=== PATIENT | female | born 1995 | race Caucasian/White ===

== ENCOUNTER 2017-02-07 09:44 | Emergency (ER) | payer OTHER ==
[~2017-02-07] VITALS: Ht 157.5 cm; Wt 69.5 kg
[2017-02-07 09:45] VITALS: BP 128/69
[2017-02-07] MEDS ORDERED: PRENTAB55 PO (10:07)
[2017-02-07] MEDS ORDERED: NS 1,000 ML IV ONE (10:30)
[2017-02-07] MEDS ORDERED: cefTRIAXone SOD 1 GM in D5W MINI-BAG PLUS 50 ML IV ONE (10:30)
[2017-02-07 10:38] LABS: MEAN CORPUSCULAR HEMOGLOBIN 32.5 pg (27.0-33.0); MEAN CORPUSCULAR HGB CONC 35.8 g/dl (32.0-36.5); MEAN CORPUSCULAR VOLUME 90.8 fl (80.0-96.0); WHITE BLOOD COUNT 16.5 K/mm3 (4.0-10.0)
[2017-02-07 10:39] LABS: BASO % 0.1 % (0.0-1.0); EOS % 0.2 % (0.0-3.0); LARGE UNSTAINED CELL # 0.1 K/mm3 (0.0-0.4); LARGE UNSTAINED CELL % 0.9 % (0.0-4.0); LYMPH % 5.5 % (24.0-44.0); MONO # 1.1 K/mm3 (0.0-0.8); MONO % 6.4 % (0.0-5.0); NEUTROPHILS # 14.4 K/mm3 (1.8-7.7); PLATELET COUNT, AUTOMATED 194 k/mm3 (150-450)
[2017-02-07 10:57] LABS: ANION GAP 12 MEQ/L (8-16); BLOOD UREA NITROGEN 6 MG/DL (7-18); CARBON DIOXIDE LEVEL 24 MEQ/L (21-32); CHLORIDE LEVEL 98 MEQ/L (98-107); CREATININE FOR GFR 0.65 MG/DL (0.55-1.02); GLUCOSE, FASTING 86 MG/DL (70-105); POTASSIUM SERUM 3.4 MEQ/L (3.5-5.1); SODIUM LEVEL 134 MEQ/L (136-145)
--- NOTE | 2017-02-07 11:36 | REP ---
RENAL ULTRASOUND: HISTORY: Left flank pain. The kidneys are normal in echogenicity. The right kidney measures 6.4 cm in transverse by 4.7 cm in AP by 13.1 cm in cephalocaudal dimensions. The left kidney measures 6.7 cm in transverse by 5.5 cm in AP by 12.4 cm in cephalocaudal dimensions. There is mild right hydronephrosis and proximal right hydroureter. There is no left hydronephrosis or hydroureter. There is no mass. There are no filling defects in the urinary bladder. An intrauterine is present in breech presentation. IMPRESSION: Mild right hydronephrosis and mild proximal hydroureter. Signed by Jhony Morales MD 02/07/2017 11:39 A
[2017-02-07] MEDS ORDERED: AUGM875T28 PO (13:26)
== END 2017-02-07 13:42 | disposition home or self-care (01) ==
LOC: M ED 09:44
DX: O23.42 Unspecified infection of urinary tract in pregnancy, second trimester (principal); O23.02 Infections of kidney in pregnancy, second trimester; Z3A.16 16 weeks gestation of pregnancy; Z79.899 Other long term (current) drug therapy; Z88.8 Allergy status to other drugs, medicaments and biological substances
CPT/HCPCS: 76775; 80048; 81001; 85025; 87088; 87186; 96365; 96366; 99283; J0696

== ENCOUNTER 2017-07-05 13:04 | Outpatient (CLI) | payer OTHER | END 2017-07-05 15:00 | disposition home or self-care (01) | LOC: M LDO 13:04 | DX: O36.8130 Decreased fetal movements, third trimester, not applicable or unspecified (principal); Z3A.37 37 weeks gestation of pregnancy; Z79.899 Other long term (current) drug therapy; Z88.8 Allergy status to other drugs, medicaments and biological substances | CPT/HCPCS: 59025 ==

== ENCOUNTER 2017-07-19 09:55 | Outpatient (CLI) | payer OTHER ==
[2017-07-19 10:44] LABS: HEMATOCRIT 35.3 % (36.0-47.0); HEMOGLOBIN 12.1 g/dl (12.0-16.0); MEAN CORPUSCULAR HEMOGLOBIN 30.6 pg (27.0-33.0); MEAN CORPUSCULAR HGB CONC 34.3 g/dl (32.0-36.5); MEAN CORPUSCULAR VOLUME 89.4 fl (80.0-96.0); PLATELET COUNT, AUTOMATED 170 10^3/uL (150-450); RED BLOOD COUNT 3.95 10^6/uL (4.00-5.40); RED CELL DISTRIBUTION WIDTH 12.4 % (11.5-14.5); WHITE BLOOD COUNT 13.1 10^3/uL (4.0-10.0)
[2017-07-19 10:52] LABS: TOTAL PROTEIN,RANDOM URINE 25.7 MG/DL (0.0-12.0)
[2017-07-19 11:05] LABS: ALT/SGPT 17 U/L (12-78); LDH LACTATE DEHYDROGENASE 198 U/L (84-246); URIC ACID 3.9 MG/DL (2.6-6.0)
[2017-07-19 11:05] LABS: AST/SGOT 19 U/L (7-37)
== END 2017-07-19 12:05 | disposition home or self-care (01) ==
LOC: M LDO 09:55
DX: O26.893 Other specified pregnancy related conditions, third trimester (principal); Z3A.39 39 weeks gestation of pregnancy; R03.0 Elevated blood-pressure reading, without diagnosis of hypertension; Z88.8 Allergy status to other drugs, medicaments and biological substances
CPT/HCPCS: 59025

== ENCOUNTER → 2017-07-20 | Outpatient (REF) | payer OTHER ==
[2017-07-20 15:31] LABS: TOTAL VOLUME, URINE 1725 ML
[2017-07-20 15:37] LABS: TOTAL PROTEIN 24 HOUR URINE 220.8 MG/24HR (50-150); URINE TOTAL PROTEIN 12.8 MG/DL (0-12)
== END ==
LOC: M LAB REF 15:15
DX: O26.893 Other specified pregnancy related conditions, third trimester (principal); R03.0 Elevated blood-pressure reading, without diagnosis of hypertension; Z3A.39 39 weeks gestation of pregnancy
CPT/HCPCS: 81050

== ENCOUNTER 2017-07-26 14:09 | Outpatient (CLI) | payer OTHER | END 2017-07-26 16:00 | disposition home or self-care (01) | LOC: M LDO 14:09 | DX: O47.1 False labor at or after 37 completed weeks of gestation (principal); Z3A.40 40 weeks gestation of pregnancy; Z88.8 Allergy status to other drugs, medicaments and biological substances | CPT/HCPCS: 76815 ==

== ENCOUNTER 2017-07-30 01:01 | Outpatient (CLI) | payer OTHER | END 2017-07-30 02:26 | disposition home or self-care (01) | LOC: M LDO 01:01 | DX: O47.1 False labor at or after 37 completed weeks of gestation (principal); Z3A.41 41 weeks gestation of pregnancy ==

== ENCOUNTER 2017-07-30 19:28 | Inpatient (IN) | payer OTHER ==
[2017-07-30] MEDS: LR 1,000 ML IV (21:52)
[2017-07-30] MEDS: LACTATED RINGER'S 1000 ML IV (21:52)
[2017-07-30] MEDS ORDERED: LR 1,000 ML IV (21:52)
[2017-07-30 22:22] LABS: HEMOGLOBIN 11.8 g/dl (12.0-16.0); MEAN CORPUSCULAR HEMOGLOBIN 30.3 pg (27.0-33.0); MEAN CORPUSCULAR HGB CONC 33.7 g/dl (32.0-36.5); PLATELET COUNT, AUTOMATED 171 10^3/uL (150-450); RED BLOOD COUNT 3.89 10^6/uL (4.00-5.40); RED CELL DISTRIBUTION WIDTH 12.9 % (11.5-14.5); WHITE BLOOD COUNT 19.7 10^3/uL (4.0-10.0)
[2017-07-30] MEDS ORDERED: FENTANYL 2MCG/ML ROPIVACAINE 0.2% IN 0.9% NACL 200ML IVBAG As Ordered (22:58)
[2017-07-30 23:04] LABS: AMPHETAMINES URINE REFLEX NEGATIVE (NEGATIVE); BARBITURATES URINE REFLEX NEGATIVE (NEGATIVE); BENZODIAZEPINES URINE REFLEX NEGATIVE (NEGATIVE); CANNABINOIDS URINE REFLEX NEGATIVE (NEGATIVE); COCAINE METABOLITE URINE REFLE NEGATIVE (NEGATIVE); METHADONE URINE REFLEX NEGATIVE (NEGATIVE); OPIATES URINE REFLEX NEGATIVE (NEGATIVE); PHENCYCLIDINE URINE REFLEX NEGATIVE (NEGATIVE)
[2017-07-31] MEDS ORDERED: ePHEDrine INJ 50 MG/ML VIAL IV (00:15)
[2017-07-31] MEDS ORDERED: LACTATED RINGER'S 1000 ML IV (00:15)
[2017-07-31] MEDS ORDERED: REFRIGERATOR IV KEYS XX (00:15)
[2017-07-31] MEDS ORDERED: EPIDURAL/PCA KEYS XX (00:15)
[2017-07-31] MEDS ORDERED: NALOXONE INJ 0.4 MG/1 ML VIAL (J2310) IV ×3 (00:15→14:25)
[2017-07-31] MEDS ORDERED: diphenhydrAMINE INJ 50MG/ML VIAL (J1200) IV (00:15)
[2017-07-31] MEDS: FENTANYL/ROPIVACAINE/NACL BAG 200 ML EPIDURAL (00:15)
[2017-07-31] MEDS ORDERED: ONDANSETRON 4MG/2ML VIAL (J2405) IV ×4 (00:15→15:30)
[2017-07-31] MEDS ORDERED: EPIDURAL COMMENT XX (00:15)
[2017-07-31] MEDS: OXYTOCIN DRIP 30 UNITS in APPROPRIATE DILUENT 1 EA IV (01:20)
[2017-07-31] MEDS ORDERED: TERBUTALINE SULFATE 1 MG/ML VIAL (J3105) As Ordered (13:52)
[2017-07-31] MEDS ORDERED: ceFAZolin 2 GM/D5W 50 ML IV BAG (J0690 PER 500MG) As Ordered (13:53)
[2017-07-31] MEDS ORDERED: AZITHROMYCIN INJ 500MG VIAL (J0456) As Ordered (13:53)
[2017-07-31] MEDS ORDERED: BICITRA 30ML SOLN UDC As Ordered (13:57)
[2017-07-31] MEDS: BICITRA 30ML SOLN UDC PO (14:00)
[2017-07-31] MEDS ORDERED: MORPHINE PRES-FREE INJ 10 MG/10 ML VIAL (J2274) As Ordered (14:18)
[2017-07-31] MEDS ORDERED: KETOROLAC 60 MG/2 ML VIAL (J1885) As Ordered (14:18)
[2017-07-31] MEDS ORDERED: OXYTOCIN INJ 10 UNITS/ML VIAL (J2590) As Ordered ×3 (14:18→14:28)
[2017-07-31] MEDS ORDERED: ONDANSETRON 4MG/2ML VIAL (J2405) As Ordered ×2 (14:18→14:40)
[2017-07-31] MEDS ORDERED: NALBUPHINE HCL 10 MG/ML AMP (J2300) IV ×2 (14:25→15:30)
[2017-07-31] MEDS ORDERED: METOCLOPRAMIDE INJ 10MG/2ML VIAL (J2765) IV (14:25)
[2017-07-31] MEDS ORDERED: LIDOCAINE 2% W/EPIN INJ 20ML **PRES FREE As Ordered (14:28)
[2017-07-31] MEDS ORDERED: SODIUM BICARBONATE 8.4% INJ 50MEQ 50 ML VIAL As Ordered (14:28)
[2017-07-31 14:42] LABS: CORD GAS ABE V -2.2; CORD GAS HCO3 V 22.7 MEQ/L; CORD GAS O2 SAT V 73.4 %; CORD GAS PCO2 V 39.7 mmHg; CORD GAS PH V 7.375 UNITS; CORD GAS TCO2 V 23.9 MEQ/L
[2017-07-31] MEDS ORDERED: RHOGAM 300 MCG (1500 IU) INJ (J2790) IM (15:30)
[2017-07-31] MEDS ORDERED: MEASLES,MUMPS,RUBELLA VACCINE INJ (MMR-II) (90707) SC (15:30)
[2017-07-31] MEDS ORDERED: PROMETHAZINE 25 MG TAB PO (15:30)
[2017-07-31] MEDS ORDERED: DOCUSATE SODIUM 100 MG CAP PO (15:30)
[2017-07-31] MEDS ORDERED: PERCOCET 5MG/325MG TAB PO (15:30)
[2017-07-31] MEDS ORDERED: MOM 30ML SUSPENSION UDC PO (15:30)
[2017-07-31] MEDS ORDERED: fentaNYL 100 MCG/2 ML INJECTION (J3010) IV (15:30)
[2017-07-31] MEDS: AZITHROMYCIN INJ 500 MG, VIAL MATE ADAPTER 1 EACH in D5W 250 ML IV (16:40)
[2017-07-31] MEDS: TERBUTALINE SULFATE 1 MG/ML VIAL (J3105) SC (16:40)
[2017-07-31] MEDS: LR 1,000 ML IV (16:44)
[2017-08-01] MEDS: METHYLERGONOVINE MALEATE 0.2 MG TAB PO (00:25)
[2017-08-01] MEDS: LR 1,000 ML IV (00:38)
[2017-08-01] MEDS: PERCOCET 5MG/325MG TAB PO ×4 (06:15→19:31)
[2017-08-01 07:46] LABS: HEMATOCRIT 26.1 % (36.0-47.0); MEAN CORPUSCULAR HEMOGLOBIN 30.5 pg (27.0-33.0); MEAN CORPUSCULAR HGB CONC 33.3 g/dl (32.0-36.5); MEAN CORPUSCULAR VOLUME 91.6 fl (80.0-96.0); PLATELET COUNT, AUTOMATED 138 10^3/uL (150-450); RED BLOOD COUNT 2.85 10^6/uL (4.00-5.40); RED CELL DISTRIBUTION WIDTH 13.3 % (11.5-14.5); WHITE BLOOD COUNT 22.5 10^3/uL (4.0-10.0)
[2017-08-01 08:02] LABS: HEMOGLOBIN 8.7 g/dl (12.0-16.0)
[2017-08-01] MEDS: PRENATAL VITAMINS CHEWABLE TABLET PO (10:05)
[2017-08-02] MEDS: PERCOCET 5MG/325MG TAB PO ×2 (05:20→10:05)
[2017-08-02] MEDS: PRENATAL VITAMINS CHEWABLE TABLET PO (10:05)
== END 2017-08-02 11:40 | disposition home or self-care (01) | DRG 766 ==
LOC: M LDO 19:28 → M LDI 21:39 → M OBS 07-31 16:20
PROC: 10D00Z1 Extraction of Products of Conception, Low, Open Approach (ICD-10-PCS; principal; 2017-07-31 14:08)
DX: O48.0 Post-term pregnancy (principal); Z37.0 Single live birth; Z3A.41 41 weeks gestation of pregnancy; O76 Abnormality in fetal heart rate and rhythm complicating labor and delivery

== ENCOUNTER → 2018-08-01 | Outpatient (REF) | payer OTHER ==
[~2018-08-01] MED LIST: AUGM875T28 PO; COLA100C5 PO; MOM30SS PO; OXYC1TAB23 PO; PRENTAB55 PO; ZOLO25TA PO
[2018-08-01 13:33] LABS: BASO # 0.1 10^3/uL (0.0-0.2); BASO % 0.4 % (0.0-1.0); EOS # 0.1 10^3/uL (0.0-0.50); HEMATOCRIT 43.5 % (36.0-47.0); HEMOGLOBIN 14.4 g/dl (12.0-15.5); LYMPH # 2.9 10^3/uL (1.5-6.5); LYMPH % 25.1 % (24.0-44.0); MEAN CORPUSCULAR HEMOGLOBIN 30.1 pg (27.0-33.0); MEAN CORPUSCULAR HGB CONC 33.1 g/dl (32.0-36.5); MONO # 0.9 10^3/uL (0.0-0.8); MONO % 7.8 % (0.0-5.0); NEUTROPHILS # 7.7 10^3/uL (1.8-7.7); NEUTROPHILS % 65.3 % (36.0-66.0); PLATELET COUNT, AUTOMATED 281 10^3/uL (150-450); RED BLOOD COUNT 4.78 10^6/uL (4.00-5.40); WHITE BLOOD COUNT 11.7 10^3/uL (4.0-10.0)
[2018-08-01 14:29] LABS: ERYTHROCYTE SEDIMENTATION RATE 7 mm/hr (0-20)
[2018-08-04 00:07] LABS: ANA (HEP2) Negative (.); CYCLIC CITRULLINATED PEPTIDE 1 units (0-19); SSA SJOGRENS A <0.2 AI (0.0-0.9); SSB SJOGRENS B <0.2 AI (0.0-0.9)
== END ==
LOC: M SFHCPLAZ 11:49
PROVIDERS: ATTEND Internal Medicine Infectious Disease
DX: L40.9 Psoriasis, unspecified (principal)

== ENCOUNTER → 2018-11-21 | Outpatient (CLI) | payer OTHER ==
--- NOTE | 2018-11-21 18:01 | REP ---
LUMBAR SPINE, FIVE VIEWS: HISTORY: Back pain. There is no acute fracture of subluxation. The intervertebral discs are normal in height. The facet joints are normal in appearance. IMPRESSION:There is no acute fracture or subluxation. Electronically Signed by Jhony Morales MD 11/21/2018 06:27 P
[2018-11-21 19:29] LABS: ALBUMIN 4.6 GM/DL (3.2-5.2); ALT/SGPT 30 U/L (12-78); BILIRUBIN,TOTAL 0.3 MG/DL (0.2-1.0); BLOOD UREA NITROGEN 11 MG/DL (7-18); C REACTIVE PROTEIN QUANTITATIV 0.34 MG/DL (0.00-0.30); CALCIUM LEVEL 9.9 MG/DL (8.5-10.1); CARBON DIOXIDE LEVEL 27 MEQ/L (21-32); CHLORIDE LEVEL 104 MEQ/L (98-107); COMPLEMENT C3 148 MG/DL (90-180); COMPLEMENT C4 32 MG/DL (10-40); CREATININE FOR GFR 0.77 MG/DL (0.55-1.30); GLOMERULAR FILTRATION RATE > 60.0 (>60); GLUCOSE, FASTING 99 MG/DL (70-100); POTASSIUM SERUM 4.1 MEQ/L (3.5-5.1); RHEUMATOID FACTOR QUANT < 10.0 IU/ML (<15.0); SODIUM LEVEL 139 MEQ/L (136-145); TOTAL PROTEIN 8.4 GM/DL (6.4-8.2)
[2018-11-21 20:03] LABS: CREATININE,RANDOM URINE 55.1 MG/DL; TOTAL PROTEIN,RANDOM URINE 6.6 MG/DL (0.0-12.0)
[2018-11-21 20:11] LABS: APPEARANCE, URINE CLEAR (CLEAR); BACTERIA, URINE AUTO NEGATIVE (NEGATIVE); BILIRUBIN, URINE AUTO NEGATIVE (NEGATIVE); BLOOD, URINE BLOOD NEGATIVE (NEGATIVE); COLOR, URINE YELLOW (YELLOW); GLUCOSE, URINE (UA) AUTO NEGATIVE (NEGATIVE); KETONE, URINE AUTO NEGATIVE (NEGATIVE); LEUKOCYTE ESTERASE, URINE AUTO 2+ (NEGATIVE); NITRITE, URINE AUTO NEGATIVE (NEGATIVE); PROTEIN, URINE AUTO NEGATIVE (NEGATIVE); RBC, URINE AUTO 1 /HPF (0-3); SPECIFIC GRAVITY URINE AUTO 1.011 (1.002-1.035); SQUAMOUS EPITHELIAL CELL UR AU 3 /HPF (0-6); TRANSITIONAL EPITHELIAL AUTO <1 /HPF; UROBILINOGEN, URINE AUTO 0.2 mg/dL (0.0-2.0); WBC, URINE AUTO 4 /HPF (0-3)
--- NOTE | 2018-11-22 11:49 | REP ---
Clinical: Lower back pain. Technique: Single AP view of the pelvis. Findings: Osseous structures, joint spaces, and surrounding soft tissues are normal. IUD identified in central seemingly satisfactory position. Impression: Normal pelvic radiograph. Electronically Signed by Juliano Turcios MD 11/22/2018 11:24 A
--- NOTE | 2018-11-22 11:50 | REP ---
Clinical: Lower back pain. Technique: Four views of the bilateral sacroiliac joints. Findings: Sacroiliac joints are symmetric and normal in appearance. No associated degenerative changes or periarticular sclerosis. Impression: Normal symmetric bilateral sacroiliac joints. Electronically Signed by Juliano Turcios MD 11/22/2018 11:25 A
[2018-11-28 14:13] LABS: ANA (HEP2) Negative (.); ANTI DS-DNA AB <1:10 titer (.); RNP ANTIBODY 0.5 AI (0.0-0.9); SMITHS ANTIBODY < 0.2 AI (0.0-0.9)
== END ==
LOC: M RAD 15:43
PROVIDERS: ATTEND Internal Medicine Rheumatology
DX: M54.9 Dorsalgia, unspecified (principal); R21 Rash and other nonspecific skin eruption; R03.0 Elevated blood-pressure reading, without diagnosis of hypertension

== ENCOUNTER → 2018-11-23 | Outpatient (REF) | payer OTHER ==
[2018-11-23 18:09] LABS: BASO # 0.1 10^3/uL (0.0-0.2); BASO % 0.5 % (0.0-1.0); EOS # 0.2 10^3/uL (0.0-0.50); EOS % 1.8 % (0.0-3.0); HEMOGLOBIN 14.3 g/dl (12.0-15.5); LYMPH % 31.8 % (24.0-44.0); MEAN CORPUSCULAR HEMOGLOBIN 30.7 pg (27.0-33.0); MEAN CORPUSCULAR HGB CONC 33.3 g/dl (32.0-36.5); MEAN CORPUSCULAR VOLUME 92.3 fl (80.0-96.0); MONO # 0.9 10^3/uL (0.0-0.8); MONO % 9.4 % (0.0-5.0); NEUTROPHILS # 5.4 10^3/uL (1.8-7.7); NEUTROPHILS % 56.3 % (36.0-66.0); PLATELET COUNT, AUTOMATED 258 10^3/uL (150-450); RED BLOOD COUNT 4.66 10^6/uL (4.00-5.40); WHITE BLOOD COUNT 9.6 10^3/uL (4.0-10.0)
[2018-11-23 18:47] LABS: ERYTHROCYTE SEDIMENTATION RATE 12 mm/hr (0-20)
== END ==
LOC: M LRY 16:17
PROVIDERS: ATTEND Internal Medicine Rheumatology
DX: M25.50 Pain in unspecified joint (principal); R21 Rash and other nonspecific skin eruption; R03.0 Elevated blood-pressure reading, without diagnosis of hypertension